=== PATIENT | male | born 1945 | race Hispanic/Latino ===

== ENCOUNTER 2022-02-18 07:53 | Day surgery (SDC) | payer OTHER ==
[2022-02-14 11:35] LABS: BASOPHILS % (AUTO) 0.5 % (0.0-5.0); EOSINOPHILS % (AUTO) 2.5 % (0.0-8.0); HEMATOCRIT 35.5 % (42-54); MEAN CORPUSCULAR HEMOGLOBIN 31.3 pg (27.0-33.0); MEAN CORPUSCULAR HGB CONC 33.5 g/dL (32.0-36.0); MEAN CORPUSCULAR VOLUME 93.4 fL (79-99); MONOCYTES % (AUTO) 14.1 % (3.0-13.0); NEUTROPHILS % (AUTO) 51.7 % (40.0-77.0); PLATELET COUNT (AUTO) 225 K/uL (130-400); RED CELL DISTRIBUTION WIDTH 12.3 % (11.0-15.5); WHITE BLOOD COUNT (AUTO) 4.3 K/uL (4.8-10.8)
[2022-02-14 11:44] LABS: CREATININE 0.8 mg/dL (0.5-1.5); POTASSIUM 5.4 mmol/L (3.5-5.1)
[2022-02-15] MEDS: CEFAZOLIN SODIUM 1 GM VIAL IVP SCH (08:30)
[2022-02-15 11:36] VITALS: BP 134/65
[2022-02-18] VITALS (16 sets, daily range): BP systolic 121–143; BP diastolic 59–90
[~2022-02-18] VITALS: Ht 170.2 cm; Wt 56.9 kg
[~2022-02-18 07:53] MED LIST: ALEN70TA80 PO; BUPIVACAINE/PF 0.5% 10ML VIAL ONE; CYAN500T9 PO; FISH1CAP27 PO; FOLI0.8C2 PO; MULT-1367 PO; MV-M1TAB20 PO; TAMS-1 PO
[2022-02-18] MEDS ORDERED: LACTATED RINGERS 1000ML 1,000 ML IV ONE (08:18)
[2022-02-18] MEDS ORDERED: GLYCOPYRROLATE 1 MG/5 ML SYRINGE ONE (08:21)
[2022-02-18] MEDS ORDERED: DEXAMETHASONE SOD PHOSPHATE 10MG/ML 1ML VIAL ONE (08:21)
[2022-02-18] MEDS ORDERED: PROPOFOL 10 MG/ML 20ML VIAL IV ONE (08:21)
[2022-02-18] MEDS ORDERED: SUCCINYLCHOLINE 200MG/10ML SYR ONE (08:21)
[2022-02-18] MEDS ORDERED: ONDANSETRON 4MG INJ ONE (08:22)
[2022-02-18] MEDS ORDERED: MIDAZOLAM HCL 1 MG/ML 2ML VIAL ONE (08:22)
[2022-02-18] MEDS ORDERED: FENTANYL CITRATE PF 50 MCG/1 ML 2ML VIAL ONE (08:22)
[2022-02-18] MEDS ORDERED: ROCURONIUM 10MG/1ML SYR 10 MG/ML ML ONE (08:22)
[2022-02-18] MEDS ORDERED: NEOSTIGMINE 5MG/5ML SYR IV ONE (08:22)
[2022-02-18] MEDS: CEFAZOLIN SODIUM 1 GM VIAL IVP SCH (08:59)
[2022-02-18] MEDS ORDERED: DEXAMETHASONE SOD PHOSPHATE 4 MG/ML 1ML VIAL ONE (10:06)
[2022-02-18] MEDS ORDERED: ROCURONIUM BROMIDE 10MG/1ML 5ML VL ONE (10:18)
[2022-02-18] MEDS ORDERED: KETOROLAC 30MG VIAL (30MG/ML) ONE (10:44)
== END 2022-02-18 12:10 | disposition home or self-care (01) ==
LOC: DAH 07:53
PROVIDERS: ATTEND Surgery
DX: K40.90 Unilateral inguinal hernia, without obstruction or gangrene, not specified as recurrent (principal); Z82.49 Family history of ischemic heart disease and other diseases of the circulatory system; Z83.3 Family history of diabetes mellitus; Z82.0 Family history of epilepsy and other diseases of the nervous system; Z79.01 Long term (current) use of anticoagulants
CPT/HCPCS: 36415; 49651; 71045; 80048; 85025; 87426; 93005; A4344; J0330; J0690; J1100; J1885; J2250; J2405; J2704; J2710; J3010; J3490; J7120; S2900

== ENCOUNTER 2022-05-18 17:59 | Emergency (ER) | payer OTHER ==
[~2022-05-18] VITALS: Ht 170.2 cm; Wt 59.0 kg
[~2022-05-18 17:59] MED LIST changes: -BUPIVACAINE/PF 0.5% 10ML VIAL ONE
[2022-05-18] MEDS ORDERED: IBUP-1493 PO (18:23)
[2022-05-18] MEDS ORDERED: SILV20CR11 TP (18:23)
[2022-05-18] MEDS ORDERED: 0.9%NACL 1000ML 1,000 ML IV ONE ×2 (18:30→18:35)
[2022-05-18] MEDS ORDERED: DIPH,PERTUSS(ACELL),TET VAC/PF 0.5 ML VIAL IM ONE (18:30)
[2022-05-18] MEDS ORDERED: TETANUS/DIPHTHERIA TOXOID [ADULT] 0.5 ML VIAL IM ONE (18:35)
[2022-05-18] MEDS ORDERED: SILVER SULFADIAZINE CREAM 50 GM TP SCH (20:00)
[2022-05-18] MEDS ORDERED: SILVER SULFADIAZINE CREAM 50 GM TP ONE (20:03)
[2022-05-18 20:15] VITALS: BP 148/76
== END 2022-05-18 20:20 | disposition home or self-care (01) ==
LOC: EDH 17:59
DX: T20.10XA Burn of first degree of head, face, and neck, unspecified site, initial encounter (principal); T23.101A Burn of first degree of right hand, unspecified site, initial encounter; T22.111A Burn of first degree of right forearm, initial encounter; T31.0 Burns involving less than 10% of body surface; Z79.1 Long term (current) use of non-steroidal anti-inflammatories (NSAID); W40.8XXA Explosion of other specified explosive materials, initial encounter; Y93.89 Activity, other specified; Y92.89 Other specified places as the place of occurrence of the external cause; Y99.8 Other external cause status
CPT/HCPCS: 99283; 96360; 90714; 90471; 16000; J7030; 90715

== ENCOUNTER → 2025-07-07 | Outpatient (CLI) | payer OTHER ==
[~2025-07-07] MED LIST changes: -ALEN70TA80 PO; -CYAN500T9 PO; -FISH1CAP27 PO; -FOLI0.8C2 PO; +IOHEXOL-350 75 ML VIAL IV ONE; -MULT-1367 PO; -MV-M1TAB20 PO; -TAMS-1 PO
--- NOTE | 2025-07-08 01:03 | HMCIMG ---
EXAM: CT SCAN OF THE ABDOMEN AND PELVIS WITH CONTRAST Clinical statement: Unspecified abdominal pain; status post recent bowel surgery. STUDY PROTOCOL: CT radiation dose protocol was performed in accordance with the principles of ALARA. A multislice CT scan of the abdomen and pelvis was performed after intravenous contrast administration (Omnipaque 350, 75 mL). Oral contrast use is not specified. Images were obtained from the diaphragms to the inguinal regions with axial and multiplanar reformations. RADIATION DOSE: CTDIvol 20.40 mGy; DLP 728.10 mGycm. CONTRAST: Standard dose of intravenous contrast administered (Omnipaque 350, 75 mL). COMPARISON: CT abdomen/pelvis without contrast from 05/07/2025. FINDINGS: LUNG BASE: No pleural effusion, consolidation, or collapse in the visualized lung bases. A 3.1 cm defect is present in the posterior dome of the left hemidiaphragm with herniation of omental fat, consistent with a diaphragmatic hernia. LIVER: Normal liver size and morphology with smooth margins. Parenchymal attenuation is normal. Several simple hepatic cysts are seen, the largest measuring approximately 2.4 cm. No focal solid mass, calcification, or biliary ductal dilatation is identified. Portal vein, hepatic veins, and IVC are normal in caliber. GALL BLADDER: Normal wall thickness and contour. No intraluminal stone, sludge, mass, or calcification. Pericholecystic fat and cystic duct are normal. PANCREAS: Normal size, morphology, and enhancement. No ductal dilatation or peripancreatic inflammation. SPLEEN: Normal size and attenuation without focal lesion. KIDNEYS: Normal size, shape, position, and enhancement of both kidneys. No hydronephrosis, nephrolithiasis, or solid renal mass. GIT /T/ PERITONEAL CAVITY: Stomach is distended but otherwise unremarkable. Gastroesophageal junction, pylorus, and duodenum appear normal. Jejunal and ileal loops show normal caliber and distribution without mural thickening. No transition point is identified. No CT evidence of acute appendicitis. Rectum and colon contain fecal matter. No free fluid or free intraperitoneal air. Mesenteric fat and omentum appear normal. LYMPHNODES: No pathologically enlarged abdominal or pelvic lymph nodes. RETROPERITONEUM: Adrenal glands are normal in morphology and attenuation. Aorta and IVC are normal in course and caliber with [id number] aortoiliac atherosclerotic calcification. PELVIS: Urinary bladder is normal in wall thickness and contour. Prostate is within normal limits for age. Minimal bilateral hydroceles. MUSCULOSKELETAL: Osteopenia. Degenerative changes in the dorsolumbar spine. Moderate chronic wedge compression of T12, unchanged from prior imaging. OTHER: Extra-abdominal and paraspinal soft tissues are unremarkable. IMPRESSION: * No CT evidence of recurrent bowel obstruction, transition point, or postoperative complication on todays examination. Compared with the CT abdomen/pelvis from 05/07/2025, the previously noted small bowel obstruction with transition point and gastric/esophageal distention has resolved. * 3.1 cm defect in the posterior dome of the left hemidiaphragm with herniation of omental fat, compatible with a small diaphragmatic hernia; correlate with symptoms, and consider surgical referral if symptomatic or enlarging. * Hepatic simple cysts, largest 2.4 cm, unchanged from prior and without suspicious featuresno further imaging follow-up is typically required unless clinically indicated. * [id number] aortoiliac atherosclerotic calcification, chronic T12 compression deformity, osteopenia, and multilevel degenerative changes of the thoracolumbar spine similar to prior. * Minimal bilateral hydroceles and otherwise unremarkable pelvic organs. * No acute abdominopelvic process identified to explain the current abdominal pain; correlation with surgical history and laboratory data is recommended, as early postoperative states or functional etiologies may not be radiographically visible. /Tiffanie
== END | disposition home or self-care (01) ==
LOC: RAH 09:01
PROVIDERS: ATTEND Surgery
DX: N28.1 Cyst of kidney, acquired (principal); I70.0 Atherosclerosis of aorta; M47.815 Spondylosis without myelopathy or radiculopathy, thoracolumbar region; M48.54XA Collapsed vertebra, not elsewhere classified, thoracic region, initial encounter for fracture; R10.9 Unspecified abdominal pain; M85.88 Other specified disorders of bone density and structure, other site; N43.3 Hydrocele, unspecified; K76.89 Other specified diseases of liver
CPT/HCPCS: 74177; Q9967